=== PATIENT | female | born 1975 | race Caucasian/White ===

== ENCOUNTER → 2018-10-10 13:47 | Outpatient (CLI) | payer MEDICAID, SELFPAY ==
--- NOTE | 2018-10-10 13:52 | CT_ITS ---
CT wrist LT wo con INDICATION: Posttraumatic pain with deformity, comminuted fracture, preoperative planning ITS.REASON: preoperative planning ORDERING PHYSICIAN: Cory Crooks MD PATIENT AGE: 43 years COMPARISON: None TECHNIQUE: Axial images are obtained without contrast. Sagittal and coronal reformatted images are reviewed as well. Three-D reformatted images also generated All CT scans at the facility use one or more dose reduction, viz: automated exposure control, ma/kV adjustment per patient size (including targeted exams where dose is matched to indication, i.e. head), or iterative reconstruction technique. FINDINGS: There is a comminuted and impacted displaced fracture of the distal radius. There is posterior displacement of the distal fracture fragment x 7 mm. There is a dorsal longitudinal fracture line which extends into the articular surface dorsally near the radial ulnar junction. The distal radioulnar joint does not appear displaced. There is mild dorsal angulation of the distal fracture fragments. In addition, there is a mildly displaced comminuted distal ulnar fracture with fracture of the distal diaphysis and also fracture of the ulnar styloid process. No carpal bone fracture evident. The radiocarpal joint is preserved. The scapholunate space is only slightly wide. There is generalized soft tissue swelling about the fracture. IMPRESSION: 1. Comminuted impacted and displaced distal radial fracture with intra-articular extension 2. Comminuted distal ulnar fracture with mild displacement
--- NOTE | 2018-10-10 13:57 | XR_ITS ---
XR chest 2V HISTORY: Smoker, cough ITS.REASON: H/O NICOTINE DEPENDECE ORDERING PHYSICIAN: Cory Crooks MD PATIENT AGE: 43 years COMPARISON: None FINDINGS: The cardiomediastinal silhouette and pulmonary vascularity are within normal limits. The lungs are clear without infiltrates, suspicious nodules, or pleural effusions. Bone plate is present over the lower cervical spine. There is mild lower thoracic curvature convex right. No acute bony abnormalities. IMPRESSION: No acute finding
[2018-10-10 15:00] LABS: Basophils # 0.1 K/mm3 (0-0.2); Basophils % 1.4 % (0.1-2.0); Eosinophils # 0.2 K/mm3 (0.0-0.4); Eosinophils % 3.5 % (0.1-12.0); Hematocrit 40.5 % (37.0-47.0); Hemoglobin 12.4 g/dL (12.2-16.2); Lymphocytes # 2.1 K/mm3 (0.7-4.5); Lymphocytes % 35.6 % (10-50); Mean Corpuscular HGB Conc 30.7 g/dL (31.8-35.4); Mean Corpuscular Hemoglobin 30.4 pg (27.0-31.2); Mean Corpuscular Volume 99.1 fl (81-99); Mean Platelet Volume 8.1 fl (7.4-10.4); Monocytes # 0.5 K/mm3 (0.1-1.0); Monocytes % 8.2 % (1.7-9.3); Neutrophils # 3.1 K/mm3 (1.8-7.8); Neutrophils % 51.3 % (37.0-80.0); Platelet Count 311 K/mm3 (142-424); Red Blood Count 4.08 M/mm3 (4.20-5.40); Red Cell Distribution Width 14.6 % (11.5-17.5)
[2018-10-10 16:02] LABS: HCG Qualitative, Serum Negative (Negative)
[2018-10-10 16:14] LABS: Anion Gap 13.5 mEq/L (5-15); Blood Urea Nitrogen 10 mg/dL (7-18); Calcium 8.9 mg/dL (8.5-10.1); Carbon Dioxide 28 mmol/L (21.0-32.0); Chloride 103 mmol/L (98-107); Creatinine,Serum 0.64 mg/dL (0.55-1.02); Estimated Glomerular Filt Rate 100 ml/min (>60); GFR (African American) 121 ML/MIN (>60); Glucose 88 mg/dL (74-106); Potassium 4.5 mmoL/L (3.5-5.1); Sodium 140 mmol/L (136-145)
== END ==
PROVIDERS: Visit Provider Orthopaedic Surgery
DX: S52.502A Unspecified fracture of the lower end of left radius, initial encounter for closed fracture (principal); S52.602A Unspecified fracture of lower end of left ulna, initial encounter for closed fracture
CPT/HCPCS: 36415; 71046; 73200; 80048; 84703; 85025; 93005